=== PATIENT | male | born 2000 | race Two or more races ===

== ENCOUNTER 2020-09-08 15:10 | Outpatient (CLI) | payer BC, SELFPAY | END 2020-09-08 15:11 | disposition home or self-care (01) | LOC: ANHCOVIDVC 15:10 | PROVIDERS: PCP Pediatrics | DX: Z23 Encounter for immunization (principal) | CPT/HCPCS: 0001A; 91300 ==

== ENCOUNTER 2020-09-29 15:15 | Outpatient (CLI) | payer OTHER, SELFPAY | END 2020-09-29 15:16 | disposition home or self-care (01) | LOC: ANHCOVIDVC 15:17 | PROVIDERS: PCP Pediatrics | DX: Z23 Encounter for immunization (principal) | CPT/HCPCS: 0002A; 91300 ==